=== PATIENT | male | born 1985 | race Caucasian/White ===

== ENCOUNTER 2017-09-06 12:43 | Emergency (ER) | payer OTHER ==
[2017-09-06 12:55] VITALS: BP 148/88
[2017-09-06] MEDS ORDERED: Ketorolac INJ* 60 MG/2 ML VIAL IM ONE (12:58)
--- NOTE | 2017-09-06 13:09 | UC ---
Cardiac HPI - HPI Summary HPI Summary: 32 y/o male presents to the urgent care c/o Rt side rib pain since last night s/ p wrestling. Pt reports he was practicing and the wrestler fell on top of his Rt chest. He took 2 tabs of Ibuprofen PO, pain decrease. However this morning pain return, specially w/ deep breathing and talking. Pain is 9/10 w/ mild SOB and nausea. Pt denies fever, LIRIANO, dizziness, chest pain, abdominal pain, V/D. Pt ate breakfast this morning. - History of Current Complaint Chief Complaint: UCChestPain Stated Complaint: RIB INJURY, SOB Time Seen by Provider: 09/06/17 12:58 Hx Obtained From: Patient Onset/Duration: Sudden Onset, Lasting Days - 1 days, Still Present, Worse Since - this morning Timing: Intermittent Episodes Lasting: - seconds Initial Severity: Moderate Current Severity: Severe Pain Intensity: 9 Chest Pain Location: Right Anterior - Rib side Character: Sharp/Stabbing Aggravating Factor(s): Position, Movement, Deep Breaths Alleviating Factor(s): Rest, OTC Meds Associated Signs & Symptoms: Negative: Chest Pain, Vision Changes, Headaches, Fever, Diaphoresis, Nausea/Vomiting, Hemoptysis, Abdominal Pain, Calf Pain/ Swelling - Risk Factors Pulmonary Embolism Risk Factors: Negative Cardiac Risk Factors: Negative Atrial Fibrillation: Negative TAD Risk Factors: Negative - Allergy/Home Medications Allergies/Adverse Reactions: Allergies Allergy/AdvReac Type Severity Reaction Status Date / Time morphine Allergy Itching Verified 09/06/17 12:55 PMH/Surg Hx/FS Hx/Imm Hx Previously Healthy: Yes - Pt denies PMHX - Surgical History Surgical History: Yes Surgery Procedure, Year, and Place: abd exploratory - Family History Known Family History: Positive: None - Pt denies PMHX Negative: Blood Disorder - Social History Occupation: Employed Full-time Lives: With Family Alcohol Use: Occasionally Substance Use Type: None Smoking Status (MU): Never Smoked Tobacco Review of Systems Constitutional: Negative Skin: Negative Eyes: Negative ENT: Negative Respiratory: Negative Cardiovascular: Negative Gastrointestinal: Nausea Genitourinary: Negative Motor: Negative Musculoskeletal: Other: - RT side rib pain s/p injury while wrestling Neurological: Negative Psychological: Negative Is Patient Immunocompromised?: No All Other Systems Reviewed And Are Negative: Yes Physical Exam - Summary Physical Exam Summary: Vital Signs Reviewed: Yes General: well developed, well nourished male sitting in the examining table w/o any apparent distress Eyes: Positive: Conjunctiva Clear - PERRLA, EOMI, fundi grossly normal ENT: Positive: Normal ENT inspection, Hearing grossly normal, Pharynx normal, Nasal congestion - edematous and erythematous nasal mucosa, Nasal drainage - yellowish drainage, TMs normal. Negative: Tonsillar swelling, Tonsillar exudate Neck: Positive: Supple, Nontender, No Lymphadenopathy Respiratory: no orthopnea or dyspnea. Able to speak in full sentences, no retractions or accessory muscle use, no tripod position, stridor, or head bobbing. CTA bilaterally, No wheezes, rhonchi, rales or crackles Chest: No masses, bruising, ecchymosis or swelling observed. Point tenderness over the anterior RT ribs #9-12 Cardiovascular: Positive: RRR, No Murmur, Pulses Normal, Brisk Capillary Refill Abdomen Description: Positive: Nontender, No Organomegaly, Soft. Negative: CVA Tenderness (R), CVA Tenderness (L) Bowel Sounds: Positive: Present Musculoskeletal Exam: Normal Musculoskeletal: Positive: Strength Intact, ROM Intact, No Edema Neurological Exam: Normal Psychological Exam: Normal Skin Exam: Normal Triage Information Reviewed: Yes Vital Signs: Initial Vital Signs Temp 97.7 F 09/06/17 12:49 Pulse 56 09/06/17 12:49 Resp 16 09/06/17 12:49 BP 148/88 09/06/17 12:49 Pulse Ox 100 09/06/17 12:49 - Assessment/Plan Course Of Treatment: 32 y/o male presents to the urgent care c/o Rt side rib pain since last night s/p wrestling. Pt reports he was practicing and the wrestler fell on top of his Rt chest. He took 2 tabs of Ibuprofen PO, pain decrease. However this morning pain return, specially w/ deep breathing and talking. Pain is 10/10 w/ mild SOB and nausea. Pt denies fever, LIRIANO, dizziness, chest pain, abdominal pain, V/D. Pt ate breakfast this morning. Hx obtained. Pt w/ nausea due to pain and No masses, bruising, ecchymosis or swelling observed. Point tenderness over the anterior RT ribs #9-12 on examination. Pt given Toradol IM inj and Zofran PO to alleviate symptoms. Pt tolerated well medications and felt better. Chest X-ray and RT side rib X-ray ordered, Impression: No evidence of fracture, pneumothorax or pleural effusion. Pt Rx Naproxen PO and Zofran PO to alleviate symptoms.Strongly advised If symptoms do not improve or worsen to return to the urgent care or f/u with your PCP in 2-3 days for further evaluation and treatment. Pt's BP is elevated today advised to decrease salt in diet, monitor BP and f/u with PCP for further management. Pt understood and agreed w/ plan of care. - Differential Diagnoses - Chest Pain Differential Diagnosis/HQI/PQRI: Other: - Pneumothorax, rib contusion, atelectasis, - Clinical Impression Provider Diagnoses: 1- Acute RT side rib pain and contusion s/p injury. 2- Nausea. Discharge - Sign-Out/Discharge Documenting (check all that apply): Discharge - Discharge Plan Condition: Stable Disposition: HOME Prescriptions: Naproxen TAB* [Naprosyn 250 mg TAB*] 250 mg PO Q8H PRN #30 tab PRN Reason: Pain Ondansetron ODT TAB* [Zofran 4 MG Odt TAB*] 4 mg PO Q6H PRN #12 tab.odt PRN Reason: Nausea Patient Education Materials: Low-Sodium Diet (ED), Rib Contusion (ED) Referrals: [facility] [place] [facility]IAN REFERRAL [Outside] - 2 Days Additional Instructions: 1-Please take Naproxen PO q6-8hrs prn as instructed after meals to alleviate pain and swelling. Increase fluid intake, eat well, rest and avoid strenuous exercise 2- Please Take Zofran PO as directed to alleviate nausea. 3-If symptoms do not improve or worsen please return to the urgent care or f/u with your PCP in 2-3 days for further evaluation and treatment. 4-Your BP is elevated today. please decrease salt in your diet, monitor BP and if it continues to be elevated please f/u with your PCP for further management - Billing Disposition and Condition Condition: STABLE Disposition: HOME
[2017-09-06] MEDS ORDERED: Ondansetron ODT TAB* 4 MG PO ONE (13:38)
--- NOTE | 2017-09-06 13:47 | RAD ---
INDICATION: Right rib injury. COMPARISON: There are no prior studies available for comparison. TECHNIQUE: 4 views of the right ribs and a PA view of the chest was obtained. FINDINGS: No fracture or significant focal osseous abnormality is seen. The heart is within normal limits in size. The lungs are clear. There is no evidence for pneumothorax or pleural effusion. IMPRESSION: NO EVIDENCE FOR FRACTURE.
== END 2017-09-06 14:04 | disposition home or self-care (01) ==
LOC: UCEAST 12:43
DX: S20.211A Contusion of right front wall of thorax, initial encounter (principal); W50.0XXA Accidental hit or strike by another person, initial encounter; Y93.72 Activity, wrestling; Y92.39 Other specified sports and athletic area as the place of occurrence of the external cause; R07.81 Pleurodynia; R11.0 Nausea; Z88.5 Allergy status to narcotic agent
CPT/HCPCS: 96372; 99212; A9270-GY; G0463; J1885

== ENCOUNTER 2018-03-05 17:08 | Observation (INO) | payer OTHER ==
[2018-03-05] MEDS ORDERED: NS 0.9% 1000 ML* 2,000 ML IV ONE (17:20)
[2018-03-05] MEDS ORDERED: Naloxone* 0.4 MG/ML 1 ML VIAL IV ONE (17:20)
[2018-03-05] MEDS ORDERED: Naloxone* 0.4 MG/ML 1 ML VIAL IV PUSH ONE (17:45)
[2018-03-05 18:20] LABS: ABS Basophils 0 10^3/ul (0-0.2); ABS Eosinophils 0.1 10^3/ul (0-0.6); ABS Lymphocytes 1.3 10^3/ul (1.0-4.8); ABS Monocytes 0.6 10^3/ul (0-0.8); ABS Neutrophils 3.7 10^3/ul (1.5-7.7); ABS Nucleated RBC 0 10^3/ul; Hematocrit 38 % (42-52); Hemoglobin 13.2 g/dl (14.0-18.0); Lymphocyte % 22.6 % (25-47); Mean Corpuscular HGB Conc 35 g/dl (31-36); Mean Corpuscular Hemoglobin 34 pg (27-31); Mean Corpuscular Volume 96 fL (80-94); Mean Platelet Volume 7.7 um3 (7.4-10.4); Nucleated Red Blood Cells % 0.1; Platelet Count 248 10^3/ul (150-450); Red Blood Count 3.93 10^6/ul (4.00-5.40); Red Cell Distribution Width 13 % (10.5-15); White Blood Count 5.8 10^3/ul (3.5-10.8)
[2018-03-05 18:36] LABS: EGFR Non-African American 119.6 (>60)
--- NOTE | 2018-03-05 19:01 | RAD ---
EXAM: CT Head Without Intravenous Contrast EXAM DATE/TIME: 03/05/2018 6:43 PM CLINICAL HISTORY: 32 years old, male; Signs and symptoms; Altered mental status/memory loss; Additional info: Altered mental status, martial arts PT TECHNIQUE: Axial computed tomography images of the head/brain without intravenous contrast. All CT scans at this facility use at least one of these dose optimization techniques: automated exposure control; mA and/or kV adjustment per patient size (includes targeted exams where dose is matched to clinical indication); or iterative reconstruction. COMPARISON: No relevant prior studies available. FINDINGS: Brain: Normal. No hemorrhage. No significant white matter disease. No edema. Ventricles: Normal. No ventriculomegaly. Bones/joints: Normal. No acute fracture. Sinuses: Normal as visualized. No acute sinusitis. Mastoid air cells: Normal as visualized. No mastoid effusion. Orbits: There is chronic appearing deformity of the medial wall of the left orbit. Soft tissues: There appears to be swelling or scarring involving the right ear. IMPRESSION: No acute intracranial pathology. To contact [facility] with a general question: [facility] - [phone] For direct physician to physician contact: Physician Hotline - [phone] [facility] [place] ([facility] Facility ID #[id number])
[2018-03-05 19:03] LABS: INR 0.86 (0.77-1.02)
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
[2018-03-05 22:51] LABS: Urine Appearance Clear; Urine Blood Negative (Negative); Urine Color Yellow; Urine Ketones Negative (Negative); Urine Protein Negative (Negative); Urine Specific Gravity 1.018 (1.010-1.030); Urine Urobilinogen Negative (Negative)
[2018-03-05] MEDS ORDERED: LORazepam INJ* 2 MG/ML 1 ML VIAL IV PUSH ONE (23:15)
[2018-03-05] MEDS ORDERED: NS 0.9% 1000 ML* 1,000 ML IV SCH (23:30)
[2018-03-05] MEDS ORDERED: LORazepam TAB(*) 1 MG PO PRN (23:33)
[2018-03-05] MEDS ORDERED: LORazepam INJ* 2 MG/ML 1 ML VIAL IV PUSH PRN (23:33)
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
[2018-03-06] MEDS ORDERED: LORazepam TAB(*) 1 MG PO SCH (04:00)
[2018-03-06 07:15] LABS: ABS Basophils 0 10^3/ul (0-0.2); ABS Eosinophils 0.2 10^3/ul (0-0.6); ABS Lymphocytes 1.3 10^3/ul (1.0-4.8); ABS Monocytes 0.4 10^3/ul (0-0.8); ABS Neutrophils 2.4 10^3/ul (1.5-7.7); ABS Nucleated RBC 0 10^3/ul; Eosinophil % 3.5 % (0-6); Hematocrit 37 % (42-52); Hemoglobin 12.8 g/dl (14.0-18.0); Mean Corpuscular HGB Conc 34 g/dl (31-36); Mean Corpuscular Hemoglobin 33 pg (27-31); Mean Corpuscular Volume 98 fL (80-94); Mean Platelet Volume 7.6 um3 (7.4-10.4); Nucleated Red Blood Cells % 0.2; Platelet Count 216 10^3/ul (150-450); Red Blood Count 3.82 10^6/ul (4.00-5.40); Red Cell Distribution Width 13 % (10.5-15); White Blood Count 4.4 10^3/ul (3.5-10.8)
[2018-03-06 07:33] LABS: EGFR Non-African American 112.8 (>60)
[2018-03-06] MEDS ORDERED: Thiamine TAB* 100 MG TAB PO SCH (09:00)
[2018-03-06] MEDS ORDERED: NS 0.9% 1000 ML* 1,000 ML IV ONE (09:59)
[2018-03-06] MEDS ORDERED: QUEtiapine TAB* 25 MG PO ONE (12:00)
[2018-03-06 13:24] VITALS: BP 119/73
--- NOTE | 2018-03-07 12:03 | DS ---
DISCHARGE SUMMARY: DATE OF ADMISSION: 03/06/18 DATE OF DISCHARGE: 03/06/18 PRIMARY CARE PROVIDER: None. ATTENDING PHYSICIAN: Dr. Cespedes* (dictated by Tamela Marquez, ANDI). PRIMARY DIAGNOSIS: Acute alcohol withdrawal. SECONDARY DIAGNOSIS: Alcohol abuse. MEDICATIONS ON DISCHARGE: Include thiamine 100 mg p.o. daily. HISTORY OF PRESENT ILLNESS AND HOSPITAL COURSE: This is a 32-year-old male with a past medical history of alcohol abuse who presented to the emergency room last evening with a friend, Dr. Luna. When he presented to the ER with his friend, he complained of increased weakness and decreased mental status over the past 3 days. He reported that he had been drinking daily for 3 months but decided to discontinue EtOH 2 to 3 days ago. He reported that he had been consuming 3 to 6 12-ounce cans of for the past 3 months. He has never gotten EtOH but denied any EtOH related pancreatitis or previous withdrawal symptoms. His last drink was 2 to 3 days ago. In the emergency room , he denied any IV drug use or street drugs but it should be noted he refused to have a drug screen. While in the ED, his ammonia level was noted to be 68. While in the hospital, he was given lactulose 15 mg p.o. x1. The patient was admitted overnight on OBV status to [address] [place] [address], where he was placed on WAM precautions and given normal saline. The patient was placed on a WAM protocol, it was noted that he did not score and require medical intervention. The patient this morning reports he feels better but is afraid of looking back into drinking, therefore Social Work was contacted and met with the patient. Social Work provided him with information on outpatient care. The patient reported he feels safe for discharge. DISCHARGE PLAN: Mr. Hampton will be discharged to home. ACTIVITY: As tolerated. DIET: Regular. MEDICATIONS: Thiamine 100 mg p.o. daily over the counter. FOLLOWUP: Follow up with critical care clinic in 1 to 3 days as the patient does not have a primary care provider. The patient is to return to the ER or nearest hospital if he experiences any worsening symptoms such as shortness of breath, lightheadedness, dizziness, seizures, change in level of consciousness or any other worrisome signs or symptoms. This is a summarized report of the patient's medical history and hospital stay. For further details, see the entire medical record. TIME SPENT: Approximately 45 minutes were spent on this discharge, greater than half of that time was spent with the patient discussing discharge plans and instructions. TAMELA MARQUEZ NP [id number]/CPS #: [id number] COBY
== END 2018-03-06 14:40 | disposition home or self-care (01) ==
LOC: ED 17:08 → MED 03-06 00:27 → INTOOBSV 03-06 00:27
PROVIDERS: ADMIT Internal Medicine; ATTEND Internal Medicine
DX: F10.239 Alcohol dependence with withdrawal, unspecified (principal); Z88.8 Allergy status to other drugs, medicaments and biological substances; R53.1 Weakness; R41.82 Altered mental status, unspecified; F32.9 Major depressive disorder, single episode, unspecified; G47.00 Insomnia, unspecified; Z79.899 Other long term (current) drug therapy; E72.20 Disorder of urea cycle metabolism, unspecified; R10.9 Unspecified abdominal pain; R00.1 Bradycardia, unspecified
CPT/HCPCS: 36415; 70450; 80053; 80307; 80320; 80329; 81003; 82140; 82150; 82272; 82550; 83605; 83690; 83735; 84484; 85025; 85610; 93005; 96361; 96374; 99284; A9270-GY; G0378; G0480; J2060

== ENCOUNTER 2018-11-22 22:43 | Emergency (ER) | payer OTHER ==
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
[2018-11-23] MEDS ORDERED: Ibuprofen TAB* 400 MG PO ONE (01:34)
[2018-11-23 01:50] LABS: ABS Eosinophils 0.3 10^3/ul (0-0.6); ABS Lymphocytes 1.4 10^3/ul (1.0-4.8); ABS Monocytes 0.6 10^3/ul (0-0.8); ABS Neutrophils 2.5 10^3/ul (1.5-7.7); Eosinophil % 5.6 %; Hematocrit 39 % (42-52); Hemoglobin 13.4 g/dL (14.0-18.0); Mean Corpuscular HGB Conc 35 g/dL (31-36); Mean Corpuscular Hemoglobin 33 pg (27-31); Mean Corpuscular Volume 95 fL (80-94); Mean Platelet Volume 7.5 fL (7.4-10.4); Nucleated Red Blood Cells % 0.1; Platelet Count 213 10^3/uL (150-450); Red Blood Count 4.07 10^6 /uL (4.18-5.48); Red Cell Distribution Width 13 % (10-15); White Blood Count 4.8 10^3/uL (3.5-10.8)
[2018-11-23 02:06] LABS: INR 0.97 (0.82-1.09)
[2018-11-23 02:07] LABS: Albumin 4.1 g/dL (3.2-5.2); BUN/Creatinine Ratio 20.6 (8-20); Calcium 8.8 mg/dL (8.6-10.3); EGFR African American 108.5 (>60); EGFR Non-African American 89.7 (>60); Globulin 2.1 g/dL (2-4); Magnesium 2.2 mg/dL (1.9-2.7); Potassium 3.6 mmol/L (3.5-5.0); Total Bilirubin 0.4 mg/dL (0.2-1.0); Total Protein 6.2 g/dL (6.4-8.9)
[2018-11-23 02:12] LABS: CKMB ng/mL 1.2 ng/mL (0.6-6.3)
[2018-11-23 03:11] VITALS: BP 132/69
== END 2018-11-23 03:10 | disposition home or self-care (01) ==
LOC: ED 22:43
DX: R07.89 Other chest pain (principal); Z88.5 Allergy status to narcotic agent
CPT/HCPCS: 36415; 71045; 80053; 82550; 82553; 83735; 84484; 85025; 85379; 85610; 85730; 93005; 99283; A9270-GY